=== PATIENT | male | born 2000 | race African-American/Black ===

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

== ENCOUNTER 2018-05-01 17:49 | Emergency (ER) | payer SELFPAY ==
[~2018-05-01] VITALS: Ht 175.3 cm; Wt 54.5 kg
[~2018-05-01 17:49] MED LIST changes: +BACTRIM DS1 TAB PO; +TRIPLE ANTIBIOT TOP
[2018-05-01] MEDS ORDERED: AMOXICILLIN500 M2 PO (18:01)
[2018-05-01 18:10] VITALS: BP 125/70
== END 2018-05-01 18:10 | disposition home or self-care (01) | DRG 153 ==
LOC: ED 17:49
DX: J06.9 Acute upper respiratory infection, unspecified (principal); R07.89 Other chest pain; R09.89 Other specified symptoms and signs involving the circulatory and respiratory systems; J34.89 Other specified disorders of nose and nasal sinuses